=== PATIENT | male | born 1975 | race Caucasian/White ===

== ENCOUNTER 2025-04-21 07:29 | Day surgery (SDC) | payer BC ==
[~2025-04-21 07:29] MED LIST: Ketorolac 30 MG/ML SDV ONE; Lidocaine 2% 5 ML SDV ONE; Midazolam 1 MG/ML 2 ML SDV ONE; Ondansetron 4 MG/2 ML SDV ONE; Propofol 200 MG/20 ML SDV ONE; Sodium Chloride 0.9% 10 ML Syringe FLUSH PRN; Sodium Chloride 0.9% 10 ML Syringe FLUSH SCH; ceFAZolin 2 GM Vial ONE; fentaNYL 100 MCG/2 ML SDV ONE
[2025-04-21] MEDS ORDERED: Bupivacaine 0.25% 10 ML SDV ONE (07:51)
[2025-04-21] MEDS: Lactated Ringers 1,000 ML IV SCH (08:00)
[2025-04-21] MEDS ORDERED: HYDROmorphone 0.5 MG/0.5 ML Syringe IVPUSH PRN (08:14)
[2025-04-21] MEDS ORDERED: fentaNYL 100 MCG/2 ML SDV IVPUSH PRN (08:14)
[2025-04-21] MEDS ORDERED: Ondansetron 4 MG/2 ML SDV IVPUSH PRN (08:14)
[2025-04-21] MEDS ORDERED: Dexamethasone 4 MG/ML 5 ML MDV ONE (08:20)
[2025-04-21] MEDS ORDERED: Ropivacaine 0.5% 5 MG/ML 30 ML SDV ONE (08:20)
[2025-04-21] MEDS ORDERED: Acetaminophen/HYDROcodone 325-5 MG Tab PO PRN (08:32)
[2025-04-21] MEDS ORDERED: Lactated Ringers 1,000 ML ONE (09:18)
== END 2025-04-21 10:50 | disposition home or self-care (01) ==
LOC: JD.SDS 07:29
PROVIDERS: ATTEND Orthopaedic Surgery
DX: M70.21 Olecranon bursitis, right elbow (principal); M89.9 Disorder of bone, unspecified; F17.210 Nicotine dependence, cigarettes, uncomplicated; Z88.0 Allergy status to penicillin; Z79.899 Other long term (current) drug therapy
CPT/HCPCS: 24105; 24120; 64415; J0665; J0690; J1100; J1885; J2003; J2250; J2405; J2704; J2795; J3010; J7120; 01710